=== PATIENT | female | born 1980 ===

== ENCOUNTER 2023-11-04 12:17 | Outpatient (CLI) | payer MEDICAID, SELFPAY | END 2023-11-04 12:18 | disposition home or self-care (01) | LOC: AMB 11-19 07:34 | PROVIDERS: Visit Provider Emergency Medicine Emergency Medical Services | DX: T14.90XA Injury, unspecified, initial encounter (principal); F41.9 Anxiety disorder, unspecified; V43.52XA Car driver injured in collision with other type car in traffic accident, initial encounter; Y92.410 Unspecified street and highway as the place of occurrence of the external cause | CPT/HCPCS: A0998 ==